=== PATIENT | female | born 1950 | race Caucasian/White ===

== ENCOUNTER → 2023-02-03 15:46 | Outpatient (CLI) | payer MEDICARE, BC, SELFPAY ==
--- NOTE | ~2023-02-03 | MR_ITS ---
MRI of the right knee Clinical history: Pain Technique: Coronal proton density and proton density-weighted images, sagittal proton-density and T2 fat-sat images, and axial proton-density fat-saturated images were acquired. Findings: Anterior and posterior cruciate ligaments are intact. Medial collateral ligament and the la teral collateral ligament complex are intact. Popliteus tendon is intact. No definite meniscal tear identified. Articular cartilage in the medial lateral compartments is well preserved. 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 There is high-grade chondral malacia along the patellar apex extending along the medial patellar facet. There are minimal areas of subchondral reac tive marrow edema involving the patellofemoral compartment. Extensor mechanism is intact. Small joint effusion present. No Luna's cyst. 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 No other significant abnormalities. Reviewed, dictated and finalized at [facility]. 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 No other significant abnormalities.
== END ==
PROVIDERS: PCP Family Medicine; Visit Provider Orthopaedic Surgery
DX: M22.41 Chondromalacia patellae, right knee (principal)
CPT/HCPCS: 73721